=== PATIENT | female | born 1970 | race Two or more races ===

== ENCOUNTER 2020-01-11 13:55 | Emergency (ER) | payer OTHER ==
[~2020-01-11] VITALS: Ht 162.6 cm; Wt 74.8 kg
== END 2020-01-11 16:06 | disposition home or self-care (01) ==
LOC: ER 13:55
DX: S50.12XA Contusion of left forearm, initial encounter (principal); W18.39XA Other fall on same level, initial encounter; Y93.89 Activity, other specified; Y92.098 Other place in other non-institutional residence as the place of occurrence of the external cause; Y99.8 Other external cause status

== ENCOUNTER 2020-01-18 10:10 | Outpatient (CLI) | payer OTHER | END 2020-01-18 11:44 | disposition home or self-care (01) | LOC: RAD 10:10 | PROVIDERS: ATTEND Orthopaedic Surgery | DX: S52.572A Other intraarticular fracture of lower end of left radius, initial encounter for closed fracture (principal) ==

== ENCOUNTER 2020-01-18 13:33 | Outpatient (CLI) | payer OTHER | END 2020-01-18 13:40 | disposition home or self-care (01) | LOC: LAB 13:33 | PROVIDERS: ATTEND Orthopaedic Surgery | DX: E55.9 Vitamin D deficiency, unspecified (principal); M85.88 Other specified disorders of bone density and structure, other site ==

== ENCOUNTER 2020-02-29 11:57 | Outpatient (CLI) | payer OTHER | END 2020-02-29 12:00 | disposition home or self-care (01) | LOC: RAD 11:57 | PROVIDERS: ATTEND Orthopaedic Surgery | DX: S52.572D Other intraarticular fracture of lower end of left radius, subsequent encounter for closed fracture with routine healing (principal); M20.12 Hallux valgus (acquired), left foot; M20.42 Other hammer toe(s) (acquired), left foot; M20.5X2 Other deformities of toe(s) (acquired), left foot ==

== ENCOUNTER 2020-03-14 11:12 | Outpatient (CLI) | payer OTHER | END 2020-03-14 11:33 | disposition home or self-care (01) | LOC: LAB 11:12 | PROVIDERS: ATTEND Internal Medicine Endocrinology, Diabetes & Metabolism | DX: D53.8 Other specified nutritional anemias (principal); E04.8 Other specified nontoxic goiter; I10 Essential (primary) hypertension; N39.0 Urinary tract infection, site not specified; N36.2 Urethral caruncle; E78.2 Mixed hyperlipidemia; E11.9 Type 2 diabetes mellitus without complications; E55.9 Vitamin D deficiency, unspecified ==

== ENCOUNTER 2020-03-21 11:28 | Outpatient (CLI) | payer OTHER | END 2020-03-21 11:40 | disposition home or self-care (01) | LOC: NUCLEAR 11:28 | PROVIDERS: ATTEND Orthopaedic Surgery | DX: M81.0 Age-related osteoporosis without current pathological fracture (principal) ==

== ENCOUNTER → 2020-03-30 10:35 | Outpatient (CLI) | payer OTHER | END | disposition home or self-care (01) | LOC: LAB 10:35 | PROVIDERS: ATTEND Orthopaedic Surgery | DX: I10 Essential (primary) hypertension (principal); D64.89 Other specified anemias; E88.89 Other specified metabolic disorders; D68.8 Other specified coagulation defects; N39.0 Urinary tract infection, site not specified; Z22.322 Carrier or suspected carrier of Methicillin resistant Staphylococcus aureus; Z76.89 Persons encountering health services in other specified circumstances; I49.8 Other specified cardiac arrhythmias ==

== ENCOUNTER 2020-05-02 10:30 | Outpatient (CLI) | payer OTHER | END 2020-05-02 10:32 | disposition home or self-care (01) | LOC: RAD 10:30 | PROVIDERS: ATTEND Orthopaedic Surgery | DX: M20.5X2 Other deformities of toe(s) (acquired), left foot (principal); M20.12 Hallux valgus (acquired), left foot ==

== ENCOUNTER 2020-08-30 14:30 | Outpatient (CLI) | payer OTHER | END 2020-08-30 14:42 | disposition home or self-care (01) | LOC: RAD 14:30 | PROVIDERS: ATTEND Orthopaedic Surgery | DX: M20.12 Hallux valgus (acquired), left foot (principal) ==

== ENCOUNTER 2020-12-24 15:56 | Outpatient (CLI) | payer OTHER | END 2020-12-27 07:03 | disposition home or self-care (01) | LOC: RAD 15:56 | PROVIDERS: ATTEND Orthopaedic Surgery | DX: M20.22 Hallux rigidus, left foot (principal); M25.532 Pain in left wrist ==

== ENCOUNTER 2021-01-15 10:52 | Outpatient (CLI) | payer OTHER | END 2021-01-15 11:08 | disposition home or self-care (01) | LOC: MRI 10:52 | PROVIDERS: ATTEND Orthopaedic Surgery | DX: M25.532 Pain in left wrist (principal) | CPT/HCPCS: 73218 ==

== ENCOUNTER → 2022-03-06 11:10 | Outpatient (CLI) | payer OTHER | END | disposition home or self-care (01) | LOC: LAB 11:10 | PROVIDERS: ATTEND Obstetrics & Gynecology | DX: N95.1 Menopausal and female climacteric states (principal) ==

== ENCOUNTER 2022-03-06 12:25 | Outpatient (CLI) | payer OTHER | END 2022-03-06 12:37 | disposition home or self-care (01) | LOC: SONOGRAMA 12:25 | PROVIDERS: ATTEND Obstetrics & Gynecology | DX: R10.2 Pelvic and perineal pain (principal); N60.19 Diffuse cystic mastopathy of unspecified breast; N63.0 Unspecified lump in unspecified breast; N64.4 Mastodynia; R92.1 Mammographic calcification found on diagnostic imaging of breast; R92.0 Mammographic microcalcification found on diagnostic imaging of breast ==

== ENCOUNTER → 2022-05-15 13:04 | Outpatient (CLI) | payer OTHER | END | disposition home or self-care (01) | LOC: LAB 13:04 | PROVIDERS: ATTEND Obstetrics & Gynecology | DX: N95.1 Menopausal and female climacteric states (principal) ==